=== PATIENT | female | born 1950 | race Caucasian/White ===

== ENCOUNTER → 2016-09-06 | Outpatient (CLI) | payer OTHER, BC ==
[~2016-09-06] MED LIST: ASPI81TA28 PO; CLR10 PO; HYDR-5688 PO; LEVO88TA PO; MAGN400T6 PO; META1TAB; MULT-506 PO; NAPR1TAB9 PO; OMEG10007 PO; SIMV5TAB2 PO
--- NOTE | 2016-09-06 11:32 | DIAGNOSTIC IMAGING REPORT ---
MRI OF THE THORACIC SPINE WITHOUT CONTRAST CLINICAL HISTORY: Left sided thoracic pain status post fall on July 10, 2016. COMPARISON: None. TECHNIQUE: Utilizing a 1.5 Raysa magnet and dedicated coil, multiplanar, multiecho imaging of the thoracic spine was performed without IV contrast. FINDINGS: Alignment of the thoracic spine is anatomic. Vertebral body heights are maintained. There is no marrow replacement or marrow edema. Thoracic cord signal and caliber are normal. There is no intracanalicular mass or fluid collection. Paravertebral soft tissues are unremarkable. Several perineural cysts or dilated nerve sheaths are noted within the lower thoracic spine which are of no clinical significance. Mild multilevel degenerative disc disease is noted with multiple small disc protrusions at several levels that result in mild narrowing of the central canal. These include a left paracentral disc protrusion at T6-T7 that results in mild narrowing of the central canal. The neural foramen are patent. IMPRESSION: 1. Mild multilevel degenerative disc disease of the thoracic spine with multiple small disc protrusions that result in mild narrowing of the central canal. 2. Normal thoracic cord signal and caliber. 3. No evidence of traumatic injury to the thoracic spine. Electronically signed by: Sergey Ahumada M.D. 09/06/2016 11:30 AM Dictated Date/Time: 09/06/2016 11:20 AM
== END | disposition home or self-care (01) ==
LOC: C.MRIBC 10:26
PROVIDERS: ATTEND Internal Medicine Geriatric Medicine
DX: M54.6 Pain in thoracic spine (principal)

== ENCOUNTER → 2016-09-20 | Outpatient (CLI) | payer OTHER, BC ==
--- NOTE | 2016-09-20 13:00 | DIAGNOSTIC IMAGING REPORT ---
C-SPINE ROUTINE 4 OR 5 VIEWS CLINICAL HISTORY: Neck pain with left arm radiculopathy COMPARISON STUDY: No previous studies for comparison. FINDINGS: The prevertebral soft tissues are normal. No fractures or subluxations are visualized. There are multilevel degenerative changes with disc space narrowing most pronounced the C4-5, C5-6, and C6-7 levels. There is right-sided foraminal narrowing at the C5-C6 and C6-7 levels. There is equivocal left-sided foraminal narrowing at the C3-4 level. IMPRESSION: 1. No acute fractures or subluxations identified 2. Moderate multilevel degenerative changes most pronounced at the C4-5 through C6-7 levels Electronically signed by: Mario Lackey M.D. 09/20/2016 12:58 PM Dictated Date/Time: 09/20/2016 12:57 PM
== END | disposition home or self-care (01) ==
LOC: C.RADBC 11:23
PROVIDERS: ATTEND Anesthesiology
DX: M54.12 Radiculopathy, cervical region (principal)

== ENCOUNTER → 2016-09-30 | Outpatient (CLI) | payer OTHER, BC ==
--- NOTE | 2016-09-30 11:54 | DIAGNOSTIC IMAGING REPORT ---
CERVICAL SPINE MRI HISTORY: Radiculopathy. Pain. CERVICALGIA, CERVICAL RADICULOPATHY TECHNIQUE: Multiplanar multisequence MRI of the cervical spine was performed without the use of contrast. COMPARISON STUDY: None. FINDINGS: Moderate to significant degenerative intervertebral this changes from C4 through T1. Signa characteristics the cervical cord are unremarkable. C2-C3: No significant central canal or neural foraminal narrowing. C3-C4: Moderate osteophytic narrowing left neural foramina C4-C5: Moderate osteophytic narrowing of the neuroforamina bilaterally. Slight broad-based disc bulge C5-C6: Considerable osteophytic narrowing of the right neuroforamina. Moderate changes on the left. No significant deformity of the cervical cord C6-C7: Significant osteophytic narrowing of the right and to lesser extent left neural foramina C7-T1: No significant central canal or neural foraminal narrowing. IMPRESSION: 1. Moderate to significant degenerative disc change from C4 through T1. 2. Moderate osteophytic narrowing left neural foramina C3-C4. 3. Moderate osteophytic narrowing of the neuroforamina bilaterally at C4-C5. 4. Significant osteophytic narrowing right neural foramina C5-C6. 5. Osteophytic narrowing of the right and to lesser extent left neural foramina at C6-C7 Electronically signed by: Miles Driver M.D. 09/30/2016 11:52 AM Dictated Date/Time: 09/30/2016 11:49 AM
== END | disposition home or self-care (01) ==
LOC: C.MRIBC 10:45
PROVIDERS: ATTEND Anesthesiology
DX: M54.12 Radiculopathy, cervical region (principal)

== ENCOUNTER → 2017-05-05 | Outpatient (CLI) | payer OTHER, BC ==
--- NOTE | 2017-05-05 08:48 | DIAGNOSTIC IMAGING REPORT ---
CHEST 2 VIEWS ROUTINE CLINICAL HISTORY: R05 [id number] dyspnea COMPARISON STUDY: 08/03/2016 FINDINGS: Minimal anterior right middle lobe infiltrate. Lungs otherwise appear clear. There is a component of mild emphysematous change. IMPRESSION: Minimal parenchymal infiltrate anterior aspect right middle lobe The above report was generated using voice recognition software. It may contain grammatical, syntax or spelling errors. Electronically signed by: Miles Driver M.D. 05/05/2017 8:46 AM Dictated Date/Time: 05/05/2017 8:45 AM
[2017-05-05 10:33] LABS: BASO % 0.9 %; BASO ABS # 0.05 K/uL (0-0.2); COMPLETE YES; EOS % 5.1 %; IG% 0.2 %; LYMPH % 39.1 %; LYMPH ABS # 2.14 K/uL (1.2-3.4); MEAN CELL VOLUME 92.2 fL (80-100); MEAN CORPUSCULAR HEMOGLOBIN 30.1 pg (25-34); MEAN CORPUSCULAR HGB CONC 32.6 g/dl (32-36); MEAN PLATELET VOLUME 9.7 fL (7.4-10.4); MONO % 9.7 %; PLATELET COUNT 368 K/uL (130-400); RED BLOOD COUNT 4.12 M/uL (4.2-5.4); WHITE BLOOD COUNT 5.48 K/uL (4.8-10.8)
[2017-05-05 10:59] LABS: ALT/SGPT 23 U/L (12-78); BLOOD UREA NITROGEN 10 mg/dl (7-18); BUN/CREATININE RATIO 13.3 (10-20); CALCIUM 8.7 mg/dl (8.5-10.1); CARBON DIOXIDE 28 mmol/L (21-32); CHLORIDE 107 mmol/L (98-107); CHOLESTEROL 157 mg/dl (0-200); CREATININE 0.74 mg/dl (0.60-1.20); GLUCOSE 93 mg/dl (70-99); POTASSIUM 3.7 mmol/L (3.5-5.1); SODIUM 142 mmol/L (136-145)
[2017-05-05 11:10] LABS: ALKALINE PHOSPHATASE 70 U/L (45-117); AST/SGOT 21 U/L (15-37); CHOLESTEROL/HDL RATIO 2.2; HDL CHOLESTEROL 71 mg/dl; LDL CHOLESTEROL CALCULATED 73 mg/dl; TRIGLYCERIDES 67 mg/dl (0-150); VERY LOW DENSITY LIPOPROT CALC 13 mg/dl
== END | disposition home or self-care (01) ==
LOC: C.RADBC 08:28
PROVIDERS: ATTEND Internal Medicine
DX: M81.0 Age-related osteoporosis without current pathological fracture (principal); Z11.59 Encounter for screening for other viral diseases; R05 Cough; R91.8 Other nonspecific abnormal finding of lung field

== ENCOUNTER → 2017-05-07 | Outpatient (CLI) | payer OTHER, BC ==
--- NOTE | 2017-05-07 08:36 | DIAGNOSTIC IMAGING REPORT ---
(CHEST) THORAX WITHOUT CT DOSE: 245.60 mGy.cm HISTORY: Chest pain cough TECHNIQUE: Multiaxial CT images of the chest were performed without contrast. A dose lowering technique was utilized adhering to the principles of ALARA. COMPARISON: None. FINDINGS: Scattered atelectatic/bronchiectatic changes throughout both hemithoraces. Small foci are identified in the superior segments of the upper lung regions. Moderate regional bronchiectatic foci are identified in the right middle lobe at its mid aspect, mid aspect right lower lobe, and more prominently anterior aspect right middle lobe whether is peripheral consolidative changes of the anterior costophrenic angle. Lung bases otherwise are clear. Mediastinal and hilar regions show no significant adenopathy within limitations of an unenhanced scan. There are several small small shotty axillary nodes considered benign. IMPRESSION: 1. Scattered atelectatic/bronchiectatic change throughout both hemithoraces. 2. Focal consolidative infiltrate anterior aspect right middle lobe at the anterior costophrenic angle. 3. Repeat study in 3-4 months is suggested to confirm resolution and exclude any underlying pathologic process. The above report was generated using voice recognition software. It may contain grammatical, syntax or spelling errors. Electronically signed by: Miles Driver M.D. 05/07/2017 8:35 AM Dictated Date/Time: 05/07/2017 8:29 AM
== END | disposition home or self-care (01) ==
LOC: C.CTS 08:16
PROVIDERS: ATTEND Internal Medicine
DX: R05 Cough (principal); R91.8 Other nonspecific abnormal finding of lung field

== ENCOUNTER → 2017-07-04 | Outpatient (CLI) | payer OTHER, BC ==
--- NOTE | 2017-07-04 15:36 | MAMMOGRAPHY REPORT ---
BILATERAL DIGITAL SCREENING MAMMOGRAM WITH CAD: 07/04/2017 CLINICAL HISTORY: Routine screening. Patient has no complaints. TECHNIQUE: Current study was also evaluated with a Computer Aided Detection (CAD) system. Bilateral CC and MLO views were obtained. COMPARISON: Comparison is made to exams dated: 05/17/2016 mammogram - [facility], mammogram, 03/29/2014 mammogram, 03/12/2013 mammogram, 12/18/2009 mammogram, and 11/02/2007 mammo gram. BREAST COMPOSITION: The tissue of both breasts is heterogeneously dense, which may obscure small mas ses. FINDINGS: There is an irregular focal asymmetry measuring approximately 13 mm within the right upper outer quadrant posteriorly, with possible associated faint calcifications noted. Recommend spot comp ression tomosynthesis views, spot magnification views, and possible breast ultrasound for further antonina luation. The remainder of both breasts are stable compared to prior exams, without suspicious masses, calcific ations, or areas of architectural distortion noted. Circumscribed benign-appearing 5 mm mass within the right 9:00 breast is stable. A biopsy marker clip and associated calcifications in the left medi al anterior breast are stable. IMPRESSION: ACR BI-RADS CATEGORY 0: INCOMPLETE EVALUATION: NEED ADDITIONAL IMAGING EVALUATION Right breast asymmetry and possible associated calcifications, for which additional imaging evaluatio n is recommended. The patient will be called to schedule an appointment. Approximately 10% of breast cancers are not detected with mammography. A negative mammographic report should not delay biopsy if a clinically suggestive mass is present. Elsi Fletcher M.D. ah/:07/04/2017 14:35:11 Steamer Gum Candy: Ruth ANDERSEN(Nicholas)(Josi)(BD), [facility] letter sent: Addl Imaging 0 BI-RADS Code: ACR BI-RADS Category 0: Incomplete Evaluation: Need Additional Imaging Evaluation
== END | disposition home or self-care (01) ==
LOC: C.MAMM 13:35
PROVIDERS: ATTEND Internal Medicine
DX: Z12.31 Encounter for screening mammogram for malignant neoplasm of breast (principal); N64.89 Other specified disorders of breast

== ENCOUNTER → 2017-07-16 | Outpatient (CLI) | payer OTHER, BC ==
--- NOTE | 2017-07-16 13:58 | MAMMOGRAPHY REPORT ---
BILATERAL DIGITAL DIAGNOSTIC MAMMOGRAM TOMOSYNTHESIS AND TARGETED RIGHT ULTRASOUND: 07/16/2017 CLINICAL HISTORY: 67 year old woman called back from screening mammography for an irregular focal asy mmetry in the right upper outer quadrant, possibly with associated calcification. Patient has a hist ory of prior remote breast biopsies and surgeries. TECHNIQUE: Bilateral tomosynthesis CC and MLO views and spot magnification right CC and ML views wer e obtained. COMPARISON: Comparison is made to exams dated: 07/04/2017 mammogram, 05/17/2016 mammogram - [facility], 03/31/2015 mammogram, 03/29/2014 mammogram, 03/12/2013 mammogram, and 12/18/2009 mamm ogram. BREAST COMPOSITION: The tissue of both breasts is heterogeneously dense, which may obscure small mas ses. FINDINGS: There is a spiculated 10 mm mass/focal asymmetry in the upper outer posterior right breast near the fatglandular interface. Spot magnification views demonstrate microcalcifications that appe ar to be tram tracking, suggesting vascular origin. No microcalcifications are definitely associated with this spiculated mass. A circumscribed 5 mm mass also seen in the upper outer middle one third of the right breast has been stable on all available prior mammograms dating back to at least 2008, t herefore likely benign. No other obvious new suspicious mass, suspicious microcavitation indications or areas of architectural distortion are seen bilaterally. There is a stable biopsy marker clip in the anterior left breast and a few benign coarse calcifications. Targeted ultrasound was performed in the right upper outer quadrant. In the 9:00 axis approximately 8 cm from the nipple, there is a mixed echogenicity hypoechoic and echogenic anti-parallel mass with indistinct margins. This correlates with the spiculated mammographic mass. It measures approximatel y 8.5 x 8.6 x 8.6 mm and is suspicious for malignancy. Definitive characterization with ultrasound g uided core biopsy is recommended. Additional scanning throughout the right upper outer quadrant demo nstrates a lymph node in the 9:30 right breast, 9 cm from the nipple, with mildly prominent cortex, a lthough cortical thickness is within the range of normal at 2 mm, given the prominent appearance of t he cortex, definitive characterization with core needle biopsy is also recommended. IMPRESSION: ACR BI-RADS CATEGORY 4: SUSPICIOUS, TARGETED ULTRASOUND ACR BI-RADS CATEGORY 4: SUSPICIO US 1. Ultrasound-guided core biopsy is recommended for a suspicious 9 mm spiculated mass in the right 9 :00 breast posteriorly. 2. Ultrasound-guided core biopsy is also recommended for a prominent 4 mm lymph node in the 9:30 rig ht breast, 9 cm from the nipple. 3. No other focal area of distortion or spiculation is seen in both breasts on tomosynthesis images. These results and recommendations were discussed with the patient and her at the time of the exam. She tentatively scheduled the right breast biopsies prior to leaving our department. Approximately 10% of breast cancers are not detected with mammography. A negative mammographic report should not delay biopsy if a clinically suggestive mass is present. Monica Dean M.D. ay/:07/16/2017 12:28:00 Computer Training Specialist: Kiya Rivas, [facility] letter sent: Abnormal 4/5 BI-RADS Code: ACR BI-RADS Category 4: Suspicious Ultrasound BI-RADS: ACR BI-RADS Category 4: Suspici ous
== END | disposition home or self-care (01) ==
LOC: C.MAMM 09:09
PROVIDERS: ATTEND Internal Medicine
DX: R92.8 Other abnormal and inconclusive findings on diagnostic imaging of breast (principal); N64.89 Other specified disorders of breast

== ENCOUNTER → 2017-07-23 | Outpatient (CLI) | payer OTHER, BC ==
--- NOTE | 2017-07-23 12:30 | Discharge Instructions ---
Discharge Instructions Procedure Procedure Date: Jul 23, 2017. Reason for visit: R Breast Masses X2. Discharge Discharge Date: Jul 23, 2017. Discharge Diagnosis: post right breast mass and lymph node biopsy Instructions Activity Recommendations: Additional Limitations (see below) Return to School/Work: no limitations Recommended Home Diet: No Limitations Provider Instructions: ACTIVITY RECOMMENDATIONS: * No lifting, pushing, pulling or exercising the affected side for three days. RETURN TO SCHOOL/WORK: * You may return to work/school after the procedure, but do not perform any strenuous activities for 24 to 48 hours. MEDICATIONS: * Tylenol (two 325 mg) every four to six hours if needed for mild pain (if not allergic to Tylenol). DIET: * Resume previous diet. SPECIAL CARE INSTRUCTIONS: * Keep biopsy site dry for 24 hours. May shower after 24 hours, but do not soak (bathe) incision. * May remove Tegaderm (plastic patch) tomorrow AFTER showering. * Leave the steri-strips on for one week. Allow the steri-strips to fall off by themselves. If not off after one week, you may remove them. You may place a Bandaid crosswise over the strips, if desired. * Apply ice 10 minutes on and 10 minutes off as needed. * Wear a bra at bedtime to sleep more comfortably for 2-3 days. * Your referring physician should have the results after approximately 5 to 7 business days. * Call for unusual bleeding, fever, drainage, etc or if you have any questions call [phone] during normal business hours or after hours call Dr Dean, . FOLLOW UP VISIT: Follow-up with Referring Physician as scheduled. Allergies Coded Allergies: No Known Allergies (Unverified , 08/03/16) Zaire Parker Recommendations: Call your doctor if: * Temperature above 101 degrees * Pain not relieved by pain medicine ordered * There is increased drainage or redness from any incision * You have any unanswered questions or concerns. Your Doctors Instructions noted above were prepared by provider Monica Dean. Patient Signature Section: Patient Instructions Signature Page Brynn López Patient (or Guardian) Signature/Date: I have read and understand the instructions given to me by my caregivers. Caregiver/RN/Doctor Signature/Date: The above-named patient and/or guardian has received patient instructions on this date. + Original Patient Signature Page (only) stays with chart. Please make copy for patient.
--- NOTE | 2017-07-23 15:15 | MAMMOGRAPHY REPORT ---
MULTIPLE ULTRASOUND GUIDED BIOPSIES RIGHT BREAST: 07/23/2017 CLINICAL HISTORY: Indeterminate spiculated hypoechoic 9 mm mass in the 9:00 right breast, and a promi nent lymph node in the 9:30 right breast, 14 cm from the nipple. Patient presents for ultrasound-sylvie ded core biopsy 2. COMPARISON: Comparison is made to exams dated: 07/16/2017 ultrasound, 07/16/2017 mammogram, 07/04/20 17 mammogram, 05/17/2016 mammogram - [facility], and 03/31/2015 mammogram. PATIENT CONSENT: The procedure, risks and benefits were discussed with the patient and informed conse nt was obtained both verbally and in writing. Specific risks to this procedure include: bleeding, in fection, puncture of adjacent structure, nontarget biopsy, sampling error, pain, metal allergy and me dication reaction. PROCEDURE DESCRIPTION: First the suspicious spiculated shadowing mixed echogenicity mass in the 9:00 right breast was identified and targeted for biopsy. A time out was performed and the right breast w as agreed as the site of biopsy. The skin was prepped and draped in the usual sterile fashion. Subcut aneous and intraparenchymal 1% buffered lidocaine, with and without epinephrine, was administered as local anesthesia. A skin incision was made. Through the incision, 4 samples were taken with a 14 gau [employer] biopsy device. A ribbon shaped metallic marker was placed at the biopsy site. Hemostasis w as achieved after manual compression. The patient tolerated the procedure well and there was no immed iate complication. Then a plump lymph node was identified in the 9:30 right breast, which currently measures 14 cm from the nipple with the patient in the left lateral decubitus positioning. Additional buffered lidocaine with and without epinephrine was administered as local anesthesia. Using an 18-gauge Quick-Core bio psy device, 3 samples were obtained and a wing-shaped biopsy marker clip was placed within the lymph node. Hemostasis was achieved after several minutes of manual compression. Steri-Strips were placed over both incisions and an OpSite patch placed on top both. The patient tolerated the procedures we ll and there was no immediate complication. She left the department in satisfactory position. The sa mples were sent to the pathology department in appropriately labeled containers. Postprocedure right CC and ML views were obtained. The biopsy marker clips are both identified in th e CC projection but only a ribbon-shaped biopsy marker clip is seen in the MLO projection. The wing- shaped clip aligns with the speech related mammographic mass in question, and a wing-shaped clip is s een within a small lymph node. Again it should be noted that the lymph node was in the 9:30 right br east, 14 cm from the nipple when measured in the left lateral decubitus position. No significant pos tbiopsy hematoma is seen at either site. IMPRESSION: ULTRASOUND GUIDED BIOPSY Status post ultrasound-guided core biopsy of a suspicious right 9:00 breast mass and biopsy of a lymp h node in the adjacent 9:30 right breast. Biopsy clips were placed at each site. The patient will receive notification of the biopsy results from her referring physician. Monica Dean M.D. ay/:07/23/2017 12:48:35 Attending Technologist: Kiya ANDERSEN(Nicholas)(M), [facility] Medical Research Scientist: Dr. Monica Dean, [facility]
--- NOTE | 2017-07-23 15:15 | MAMMOGRAPHY REPORT ---
MULTIPLE ULTRASOUND GUIDED BIOPSIES RIGHT BREAST: 07/23/2017 CLINICAL HISTORY: Indeterminate lymph node in the 9:30 right breast. Suspicious right 9:00 breast ma ss. Patient present for ultrasound-guided core biopsy of the breast mass and lymph node. Please refer to the report from right breast ultrasound guided core biopsy performed at the same time for full detail. IMPRESSION: ULTRASOUND GUIDED BIOPSY Please refer to the report from right breast ultrasound guided core biopsy performed at the same time for full detail. Monica Dean M.D. ay/:07/23/2017 12:32:05 Attending Technologist: Christos ANDERSEN(R)(M), [facility] Home Health Care Coordinator: Dr. Monica Dean, [facility]
--- NOTE | 2017-07-23 15:18 | MAMMOGRAPHY REPORT ---
UNILATERAL RIGHT DIGITAL DIAGNOSTIC MAMMOGRAM TOMOSYNTHESIS: 07/23/2017 CLINICAL HISTORY: Status post ultrasound-guided core biopsy of a suspicious spiculated hypoechoic sha dowing mass in the 9:00 right breast, and a lymph node in the 9:30 right breast. Please refer to the report from right breast ultrasound guided core biopsy performed at the same time for full detail. IMPRESSION: POST PROCEDURE IMAGING FOR MARKER PLACEMENT Please refer to the report from right breast ultrasound guided core biopsy performed at the same time for full detail. Approximately 10% of breast cancers are not detected with mammography. A negative mammographic report should not delay biopsy if a clinically suggestive mass is present. Monica Dean M.D. ay/:07/23/2017 12:31:15 [employer] Sports Book Writer: Christos MURO)(M), [facility] BI-RADS Code: Post Procedure Imaging For Marker Placement
== END | disposition home or self-care (01) ==
LOC: C.MAMM 10:46
PROVIDERS: ATTEND Internal Medicine
DX: C50.911 Malignant neoplasm of unspecified site of right female breast (principal)

== ENCOUNTER → 2017-08-13 | Day surgery (SDC) | payer OTHER, BC ==
[2017-07-31 09:15] VITALS: BMI 27.0
--- NOTE | 2017-07-31 09:56 | PAT Medication Instructions ---
Service Date Jul 31, 2017. Current Home Medication List Aspirin (Aspirin Ec), 81 MG PO QPM Fish Oil ([place]-3), 1 CAP PO BID Levothyroxine Sodium (Synthroid), 88 MCG PO QAM Loratadine (Claritin), 10 MG PO QAM Magnesium Oxide (mg Supplement (Magnesium Oxide), 1 TAB PO QAM Multivitamin (Multivitamin), 1 TAB PO QAM Naproxen (Aleve), 220 MG PO UD PRN for Pain Saccharomyces Boulardii (Probiotic), Unknown Dose PO QAM Scopolamine (Transderm-Scop), Unknown Dose UD Simvastatin (Zocor), 10 MG PO QPM Medication Instructions For Your Scheduled Surgery -Contact your surgeon for instructions for: Naproxen (Aleve), 220 MG PO UD PRN for Pain - Hold the following medications 2 weeks prior to surgery: Fish Oil ([place]-3), 1 CAP PO BID - Hold the following medications 24 hours prior to surgery: Scopolamine (Transderm-Scop), Unknown Dose UD - Hold the following medications the morning of surgery: Saccharomyces Boulardii (Probiotic), Unknown Dose PO QAM Loratadine (Claritin), 10 MG PO QAM Magnesium Oxide (mg Supplement (Magnesium Oxide), 1 TAB PO QAM Multivitamin (Multivitamin), 1 TAB PO QAM - Take the following medications the morning of surgery with a sip of water: Levothyroxine Sodium (Synthroid), 88 MCG PO QAM - Take the following medications as scheduled the night before surgery: Aspirin (Aspirin Ec), 81 MG PO QPM Simvastatin (Zocor), 10 MG PO QPM If you have any questions please call us at [phone] or [phone] or [phone]
--- NOTE | 2017-07-31 10:42 | DIAGNOSTIC IMAGING REPORT ---
CHEST 2 VIEWS ROUTINE CLINICAL HISTORY: PAT preoperative evaluation COMPARISON STUDY: 05/05/2017 FINDINGS: The bones soft tissues and hemidiaphragms are normal. The cardiomediastinal silhouette is normal. The lungs are clear. The pulmonary vasculature is normal. IMPRESSION: Negative chest. The above report was generated using voice recognition software. It may contain grammatical, syntax or spelling errors. Electronically signed by: Miles Driver M.D. 07/31/2017 10:41 AM Dictated Date/Time: 07/31/2017 10:40 AM
[2017-07-31 10:51] LABS: BASO % 1.1 %; BASO ABS # 0.08 K/uL (0-0.2); EOS % 2.6 %; EOS ABS # 0.19 K/uL (0-0.5); HEMATOCRIT 40.5 % (37-47); IG# 0.01 K/uL (0.00-0.02); LYMPH % 32.9 %; LYMPH ABS # 2.44 K/uL (1.2-3.4); MEAN CELL VOLUME 95.3 fL (80-100); MEAN CORPUSCULAR HEMOGLOBIN 30.6 pg (25-34); MEAN CORPUSCULAR HGB CONC 32.1 g/dl (32-36); MEAN PLATELET VOLUME 9.7 fL (7.4-10.4); MONO ABS # 0.96 K/uL (0.11-0.59); NEUT % 50.3 %; NEUT ABS # 3.73 K/uL (1.4-6.5); PLATELET COUNT 378 K/uL (130-400); RED CELL DISTRIBUTION WIDTH CV 13.9 % (11.5-14.5); RED CELL DISTRIBUTION WIDTH SD 47.7 fL (36.4-46.3); WHITE BLOOD COUNT 7.41 K/uL (4.8-10.8)
[2017-07-31 11:01] LABS: ALBUMIN 3.9 gm/dl (3.4-5.0); CALCIUM 9.3 mg/dl (8.5-10.1); CREATININE 0.73 mg/dl (0.60-1.20); POTASSIUM 3.8 mmol/L (3.5-5.1)
[2017-07-31 11:04] LABS: TOTAL PROTEIN 7.8 gm/dl (6.4-8.2)
[~2017-08-13] VITALS: Ht 154.9 cm; Wt 64.5 kg
[~2017-08-13] MED LIST changes: +ANAS1TAB59 PO; +ATROPINE SULFATE 0.1 MG/ML 5ML SYR IV PRN; +BUPIVACAINE 0.5 % 5 MG/1 ML MPF 30ML VIAL ONE; +CEFAZOLIN 2000MG IV PUSH 10 ML IV SCH; +DOCU-94 PO; +EpHEDrine SULFATE 50MG/5ML SYR ONE; +EpHEDrine SULFATE INJ 50 MG/ML AMP IV PRN; +FENTANYL CITRATE INJ 50 MCG/1 ML 2 ML VIAL IV PRN; +FENTANYL CITRATE INJ 50 MCG/1 ML 2 ML VIAL ONE; +GLUCTAB7 PO; -HYDR-5688 PO; +HYDROmorphone INJ 1 MG/ML SYR IV PRN; +LACTATED RINGER'S 1000ML 1,000 ML IV SCH; +LIDOCAINE HCL 2% 2 ML VIAL (20MG/ML) ONE; -MAGN400T6 PO; +MAGN500T22 PO; -META1TAB; +METR0.7536 TOP; +MIDAZOLAM HCL 1 MG/ML 2ML VIAL ONE; +MoRPHine SULFATE 2 MG/ML CARP IV PRN; +ONDANSETRON INJ 2 MG/ML 2 ML VIAL IV PRN; +OXYC-57 PO; +OXYCODONE/ACETAMINOPHEN 5-325 TAB PO PRN; +PROMETHAZINE HCL INJ 12.5 MG in SODIUM CHLORIDE 0.9% 50ML 50 ML IV PRN; +PROPOFOL IV EMULSION 10 MG/ML 20 ML VIAL IV ONE; +SACC250C11 PO; +SCOP1.5D2; +SCOP1DIS17 TD
[2017-08-13 10:12] VITALS: BP 142/85; PULSE 77; TEMP 36.8; O2SAT 98; Ht 154.9 cm; Wt 64.5 kg
--- NOTE | 2017-08-13 10:15 | DIAGNOSTIC IMAGING REPORT ---
LYMPHOSCINTIGRAPHY BREAST CLINICAL HISTORY: RIGHT BREAST CA breast carcinoma TECHNIQUE: Sequential right periareolar injection of a total of 0.5 mCi technetium 99m lymphocele. COMPARISON STUDY: None FINDINGS: Successful right periareolar injection of lymphocytic. A lymph node is localized in the right axilla at 30 minutes. It was marked for later operative evaluation. IMPRESSION: Successful lymphoscintigraphy and lymph node marking. The above report was generated using voice recognition software. It may contain grammatical, syntax or spelling errors. Electronically signed by: Miles Driver M.D. 08/13/2017 10:13 AM Dictated Date/Time: 08/13/2017 10:12 AM
--- NOTE | 2017-08-13 12:32 | History & Physical Bridge Note ---
H&P Re-Evaluation Bridge Note: I have examined the patient, reviewed the History & Physical and in the interval since the performance of the History & Physical I have noted the following changes of clinical significance: Injection performed for axillary sentinel node biopsy, wire localization performed and films reviewed. No changes noted
--- NOTE | 2017-08-13 13:41 | MAMMOGRAPHY REPORT ---
UNILATERAL RIGHT DIGITAL DIAGNOSTIC MAMMOGRAM TOMOSYNTHESIS: 08/13/2017 CLINICAL HISTORY: 67-year-old woman with biopsy-proven right breast carcinoma. She presents for preo perative needle and wire localization prior to lumpectomy. Please refer to the report from right breast ultrasound guided needle localization performed at the s joy time for full detail. IMPRESSION: Please refer to the report from right breast ultrasound guided needle localization performed at the s joy time for full detail. Approximately 10% of breast cancers are not detected with mammography. A negative mammographic report should not delay biopsy if a clinically suggestive mass is present. Monica Dean M.D. ay/:08/13/2017 08:48:53 Beaver Trapper: Christos ANDERSEN(R)(M), [facility] BI-RADS Code: n/a
--- NOTE | 2017-08-13 14:32 | [facility] Post Operative Brief Note ---
Immediate Operative Summary Operative Date Aug 13, 2017. Pre-Operative Diagnosis Infiltrating Lobular Cancer of Right Breast Post-Operative Diagnosis Infiltrating Lobular Cancer of Right Breast Procedure(s) Performed Right Breast Lumpectomy with Needle Localization and Right [place] Lymph Node Biopsy Surgeon Dr Benito Exhibits Coordinator Surgeon(s) Grant oMlina PA-C Estimated Blood Loss 9CC Findings Right axillary sentinel lymph node identified with gamma probe. Max count 360 ex vivo, axilla silent area and 4-5 small sentinel lymph nodes excised. Right breast wire localized lumpectomy performed, tissue taken down to chest wall. Radiology confirmed excision of wire, clips, and suspicious calcifications. Specimens A: Sentinal Node B: Additional Sentinal Node C: right breast mass-short stitch: Long Lateral Double Deep Drains none Anesthesia GETA Complication(s) None Disposition Recovery Room / PACU
--- NOTE | 2017-08-13 14:38 | [facility] Operative Report ---
Operative Report Operative Date Aug 13, 2017. Pre-Operative Diagnosis Infiltrating Lobular Cancer of Right Breast Post-Operative Diagnosis same Procedure(s) Performed Right breast wire localized lumpectomy and right axillary sentinel lymph node biopsy Surgeon Dr Benito Physics Teacher Surgeon(s) Grant Molina PA-C Estimated Blood Loss 9CC Findings Right axillary sentinel lymph nodes identified with gamma probe. Max count 360 ex vivo, axilla silent area and 4-5 small sentinel lymph nodes excised. Right breast wire localized lumpectomy performed, tissue taken down to chest wall. Radiology confirmed excision of wire, clips, and suspicious calcifications. Specimens A: Sentinal Node B: Additional Sentinal Node C: right breast mass-short stitch: Long Lateral Double Deep Drains none Anesthesia GETA Complication(s) None Disposition Recovery Room / PACU Indications 67-year-old female diagnosed with lobular carcinoma of right breast following core needle biopsy after suspicious findings on routine mammogram. The mass is nonpalpable. Plan for wire localized right breast lumpectomy and right axillary sentinel lymph node biopsy. The risks of the procedure were discussed , all questions were answered, and the patient agreed to proceed with surgery as planned. Description of Procedure The patient had a localization wire placed in radiology prior to surgery. The films were reviewed with the radiologist for incisional planning. Patient had lymphoscintigraphy performed prior to the procedure and the axilla was examined with a gamma probe and confirmed uptake into the axilla. The patient was properly identified, consented, and taken to the operating room where she was placed in the supine position. General endotracheal anesthesia was induced. SCDs and a safety belt were placed. Preoperative antibiotics were administered. The patient's right breast and axilla were prepped and draped in the standard sterile fashion. Surgical timeout was performed and all parties were in agreement that this was the correct patient and procedure to be performed and we continued as planned. An incision was made in the right axilla in a natural skin crease and deepened down to subcutaneous tissue with electrocautery. The gamma probe was used to localize the sentinel lymph node which read 320 in vivo, and 370 ex vivo. The axilla was explored and additional lymph nodes were taken that registered greater than 10% of the ex vivo count of the sentinel lymph node. A total of 4- 5 lymph nodes were excised and sent for permanent specimen. The axilla was reexamined with the gamma probe and was silent. The wound was packed and attention turned to the breast lesion. A transverse incision was made on the upper outer quadrant of the right breast near the areola and deepened down through the subcutaneous tissue with electrocautery. Flaps were raised in all directions. The wire was delivered into the incision. The breast mass was circumferentially dissected, excised, and passed off the table as specimen. The specimen was oriented. A mammogram was performed of the specimen in radiology and confirmed excision of the wire, clip, and previously imaged abnormality. The wounds were irrigated and hemostasis was confirmed. The skin incisions were closed with interrupted 3-0 Vicryl deep dermal sutures, followed by 4-0 Monocryl running subcuticular suture. Dermabond was placed over the wounds. The physician's assistant store director, Priyank Molina, was crucial for positioning the patient, prepping and draping, retraction, exposure, and closing the incisions. The patient was extubated in the operating room and taken to the PACU where she recovered without apparent incident. All sponge, instrument and needle counts were correct at the conclusion of the procedure. The patient tolerated the procedure well. I attest to the content of the Intraoperative Record and any orders documented therein. Any exceptions are noted below.
--- NOTE | 2017-08-13 14:51 | Discharge Instructions ---
Discharge Instructions Date of Service Aug 13, 2017. Visit Reason for Visit: Right Breast Cancer W/Hosp Loc & Nm Lymph Scan Discharge Discharge Diagnosis / Problem: lumpectomy and lymph node biopsy Discharge Goals Goal(s): Decrease discomfort Activity Recommendations Activity Limitations: as noted below Shower/Bathe: no limitations (ok to shower) Driving or Machine Use: resume 3 days after discharge Anesthesia . Post Anesthesia Instructions: If you have had General Anesthesia or IV Sedation: * Do not drive today. * Resume driving when surgeon permits. * Do not make important decisions or sign legal documents today. * Call surgeon for: 1. Temperature elevations greater than 101 degrees F. 2. Uncontrollable pain. 3. Excessive bleeding. 4. Persistent nausea and vomiting. 5. Medication intolerance (nausea, vomiting or rash). * For nausea and vomiting use only clear liquids such as: tea, soda, bouillon until nausea subsides, then gradually increase diet as tolerated. * If you have any concerns or questions, call your surgeon's office. If physician is unavailable and it is an emergency, call 911 or go to the nearest emergency room. . Instructions / Follow-Up Instructions / Follow-Up Dr. Benito as planned in 1-2 weeks, call [phone] for any questions Diet Recommendations Recommended Home Diet: no limitations Procedures Procedures Performed: Right Breast Lumpectomy with Needle Localization and Right [place] Lymph Node Biopsy Pending Studies Studies pending at discharge: yes List of pending studies: pathology Medical Emergencies . Who to Call and When: Medical Emergencies: If at any time you feel your situation is an emergency, please call 911 immediately. . Non-Emergent Contact Non-Emergency issues call your: Surgeon Call Non-Emergent contact if: you have a fever, temperature is above 101.5, your pain is not controlled, wound has increased pain, you have any medication questions . . "Provider Documentation" section prepared by Priyank Molina. .
[2017-08-13 15:37] VITALS: BP 132/76; PULSE 85; TEMP 36.6; O2SAT 97
--- NOTE | 2017-08-13 15:49 | Anesthesiology Progress Note ---
Anesthesia Post Op Note Date & Time Aug 13, 2017 at 15:49 Vital Signs Pain Intensity: 3 Vital Signs Past 12 Hours Date Time Temp Pulse Resp B/P (MAP) Pulse Ox O2 Delivery O2 Flow Rate FiO2 08/13/17 15:29 37.1 08/13/17 15:25 131/75 08/13/17 15:23 92 16 08/13/17 15:23 92 16 95 08/13/17 15:22 86 15 08/13/17 15:22 87 15 94 08/13/17 15:20 132/77 08/13/17 15:17 88 15 94 08/13/17 15:17 88 15 08/13/17 15:15 126/78 08/13/17 15:12 81 14 08/13/17 15:12 82 14 93 08/13/17 15:11 87 16 94 08/13/17 15:11 87 16 08/13/17 15:10 125/79 08/13/17 15:06 92 18 08/13/17 15:06 93 18 95 08/13/17 15:05 130/83 08/13/17 15:03 95 18 08/13/17 15:03 94 18 99 08/13/17 15:00 136/81 08/13/17 14:58 94 17 100 08/13/17 14:58 93 17 08/13/17 14:55 130/83 08/13/17 14:53 92 17 100 08/13/17 14:53 91 17 08/13/17 14:50 128/79 08/13/17 14:48 86 12 128/79 100 08/13/17 14:48 88 12 08/13/17 14:48 36.7 86 12 128/79 100 Oxymask 10 08/13/17 10:12 36.8 77 18 142/85 (104) 98 Room Air Notes Mental Status: alert / awake / arousable, participated in evaluation Pt Amnestic to Procedure: Yes Nausea / Vomiting: adequately controlled Pain: adequately controlled Airway Patency, RR, SpO2: stable & adequate BP & HR: stable & adequate Hydration State: stable & adequate Anesthetic Complications: no major complications apparent
[2017-08-13 16:10] VITALS: BP 136/77; PULSE 79; O2SAT 98
[2017-08-13 16:40] VITALS: BP 144/71; PULSE 78; TEMP 37; O2SAT 98
--- NOTE | 2017-08-14 14:52 | MAMMOGRAPHY REPORT ---
NEEDLE LOCALIZATION RIGHT BREAST: 08/13/2017 CLINICAL HISTORY: 67-year-old woman with recent biopsy proven lobular carcinoma of the right breast. She presents for preoperative needle and wire localization prior to lumpectomy. COMPARISON: Comparison is made to exams dated: 08/13/2017 specimen, 07/23/2017 mammogram, 07/23/2017 u ltrasound biopsy, 07/23/2017 ultrasound biopsy, 07/16/2017 ultrasound, and 07/16/2017 mammogram - [facility]. PATIENT CONSENT: The risks of the procedure were explained to the patient and informed consent was ob tained. The patient denied allergy to lidocaine. She reported she did not eat or drink anything thi s morning that would preclude anesthesia. PROCEDURE DESCRIPTION: Prior mammograms and ultrasounds were reviewed including ultrasound-guided cor e biopsy dated 07/23/2017 and the post procedure mammograms performed on the same day. The spiculate d mass and associated ribbon-shaped biopsy marker clip in the right upper outer posterior breast aren 't the intended target for preoperative localization. A timeout was performed in the right breast was agreed as the site for preoperative localization. Wi th the patient in the supine/left lateral decubitus position, the skin of the right breast was cleans ed with Betadine. 1% buffered lidocaine without epinephrine was administered as local anesthesia. A 5cm Amato II needle and wire combination was inserted into the breast. Optimal positioning was con firmed and the needle was removed, leaving the wire in place, as per surgeon's preference. The entir e procedure including approach and needle length were discussed with the operating surgeon prior to s urgery. The patient tolerated the procedure well and there was no immediate complication. She was t ransferred to the hospital operating room in satisfactory condition. The specimen radiograph demonstrates the localizing wire, ribbon-shaped biopsy marker clip and vague area of architectural distortion. Vascular calcifications and a few other punctate calcifications ar e identified in the specimen. IMPRESSION: NEEDLE LOCALIZATION Status post successful preoperative needle and wire localization for biopsy proven lobular carcinoma in the right upper outer quadrant. The imaged specimen includes the intended abnormalities. The patient will receive notification of the pathology results from her referring physician. Monica Dean M.D. ay/:08/13/2017 14:51:25 Attending Technologist: Christos ANDERSEN(Nicholas)(M), [facility] Enrollment Management Director: Dr. Monica Dean, [facility]
== END | disposition home or self-care (01) ==
LOC: EDSTATUS 07-31 08:30 → C.ACU 07:50
PROVIDERS: ATTEND Surgery
DX: C50.911 Malignant neoplasm of unspecified site of right female breast (principal); E78.5 Hyperlipidemia, unspecified; Z98.51 Tubal ligation status; E03.9 Hypothyroidism, unspecified; M19.90 Unspecified osteoarthritis, unspecified site; Z79.899 Other long term (current) drug therapy; Z98.890 Other specified postprocedural states; Z79.82 Long term (current) use of aspirin; Z80.0 Family history of malignant neoplasm of digestive organs; Z80.1 Family history of malignant neoplasm of trachea, bronchus and lung; Z82.49 Family history of ischemic heart disease and other diseases of the circulatory system; Z83.3 Family history of diabetes mellitus

== ENCOUNTER → 2017-08-25 | Outpatient (CLI) | payer OTHER, BC ==
[~2017-08-25] MED LIST changes: -ANAS1TAB59 PO; -ATROPINE SULFATE 0.1 MG/ML 5ML SYR IV PRN; -BUPIVACAINE 0.5 % 5 MG/1 ML MPF 30ML VIAL ONE; -CEFAZOLIN 2000MG IV PUSH 10 ML IV SCH; -DOCU-94 PO; -EpHEDrine SULFATE 50MG/5ML SYR ONE; -EpHEDrine SULFATE INJ 50 MG/ML AMP IV PRN; -FENTANYL CITRATE INJ 50 MCG/1 ML 2 ML VIAL IV PRN; -FENTANYL CITRATE INJ 50 MCG/1 ML 2 ML VIAL ONE; -HYDROmorphone INJ 1 MG/ML SYR IV PRN; -LACTATED RINGER'S 1000ML 1,000 ML IV SCH; -LIDOCAINE HCL 2% 2 ML VIAL (20MG/ML) ONE; -METR0.7536 TOP; -MIDAZOLAM HCL 1 MG/ML 2ML VIAL ONE; -MoRPHine SULFATE 2 MG/ML CARP IV PRN; -ONDANSETRON INJ 2 MG/ML 2 ML VIAL IV PRN; -OXYCODONE/ACETAMINOPHEN 5-325 TAB PO PRN; -PROMETHAZINE HCL INJ 12.5 MG in SODIUM CHLORIDE 0.9% 50ML 50 ML IV PRN; -PROPOFOL IV EMULSION 10 MG/ML 20 ML VIAL IV ONE; -SCOP1DIS17 TD
--- NOTE | 2017-08-25 12:05 | DIAGNOSTIC IMAGING REPORT ---
PET/CT SKULL-THIGH HISTORY: Breast carcinoma BREAST CANCER TECHNIQUE: PET/CT was performed from the base of the skull through the pelvis following the intravenous administration of mCi of F18-FDG. Non-contrast CT imaging was performed over the same range without breath-hold for attenuation correction of PET images and anatomic correlation, but not for primary interpretation as it is not of standard diagnostic quality. CT DOSE: 298.28 mGycm COMPARISON: None. FINDINGS: HEAD AND NECK: There is no FDG-avid disease or significant lymphadenopathy in the imaged portions of the head and the neck. CHEST: Postoperative changes to the right breast and low right cervical region suggesting a postprocedural hematoma. This shows minimal post contrast metabolic activity which is unremarkable. Air is identified within the soft tissues again most likely on a post procedural bases. No evidence for pathologic metabolic activity within the chest. Hilar and mediastinal regions show no significant robinson change. ABDOMEN/PELVIS: Below the diaphragm, tracer is distributed physiologically in the gastrointestinal and genitourinary tracts. There is no significant lymphadenopathy and no FDG-avid disease. MUSCULOSKELETAL: There is no FDG-avid or destructive bone lesion. IMPRESSION: 1. Postprocedural hematoma and soft tissue air within the right breast and right axilla 2. PET scan is otherwise negative. The above report was generated using voice recognition software. It may contain grammatical, syntax or spelling errors. Electronically signed by: Miles Driver M.D. 08/25/2017 12:04 PM Dictated Date/Time: 08/25/2017 11:54 AM
== END | disposition home or self-care (01) ==
LOC: C.PET 09:01
PROVIDERS: ATTEND Internal Medicine Hematology & Oncology
DX: C50.919 Malignant neoplasm of unspecified site of unspecified female breast (principal)

== ENCOUNTER → 2017-12-18 | Outpatient (CLI) | payer OTHER, BC ==
[~2017-12-18] MED LIST changes: +ANAS1TAB19 PO; +DOCU-94 PO; +METR0.7536 TOP; -NAPR1TAB9 PO; -SCOP1.5D2; +SCOP1DIS17 TD
[2017-12-18 13:39] VITALS: BP 113/74; PULSE 82; TEMP 37.1; O2SAT 95
--- NOTE | 2017-12-19 07:01 | Radiation Oncology Follow-Up ---
Radiation Oncology Follow-Up Date of Visit December 18, 2017. Reason For Visit One-month follow-up in cancer survivorship care plan Radiation Completion Date finished 11-14-2017 Diagnosis (1) Carcinoma of central portion of right breast in female, estrogen receptor positive Status: Acute Onset Date: 07/23/2017 Histology Subtype: Lobular Stage: l (A) Permanent Comment: Abnormal right breast mammogram Status post ultrasound-guided core needle biopsy breast and axilla 07/23/2017 Invasive lobular carcinoma grade 1, lymph node benign Estrogen receptor positive, progesterone receptor positive, HER-2/judy negative Status post lumpectomy and sentinel lymph node biopsy 08/13/2017 Stage pT1c [id number] Oncotype DX score of 9 Status post completion of radiation therapy November 14, 2017. She received 5130 centigrade utilizing hypo-fractionation. Last Edited By: Heather Muñoz on Nov 24, 2017 12:43 History of Present Illness Ms. Rodriguez who presented with an abnormal mammogram on 07/04/2017 which revealed right breast asymmetry and associated calcifications. The patient was brought back on 07/16/2017 for bilateral digital diagnostic mammogram Tomosynthesis and targeted right ultrasound which revealed a suspicious 9 mm mass in the right breast in the 9 o'clock position as well as a 4 mm lymph node in the 9:30 right breast. The patient underwent ultrasound core biopsies of the right breast lesions at 9:00 and 9:30 on 07/23/2017. The biopsy of the lesion at the 9 o'clock position in the right breast revealed invasive lobular carcinoma that was grade 1 and was estrogen receptor positive, progesterone receptor positive and HER-2 negative. The biopsy of the lesion at 9:30 right breast revealed no evidence of metastatic carcinoma. The patient underwent a right breast lumpectomy and sentinel lymph node biopsy on 08/13/[address] Benito which revealed invasive lobular carcinoma that was grade 1 with no LVSI and measured 1.2 cm in the greatest dimension. The margins were negative and the closest margin was 2 mm. 12 lymph nodes were excised and no lymph nodes were positive for metastatic carcinoma. The patient was stages pathologic [id number], stage IA. We are now seeing the patient in consultation discuss role of adjuvant radiation therapy. Of note, the patient was seen by Dr. Madrigal prior to her lumpectomy and underwent a PET/CT scan on 08/25/2017 which revealed only a postprocedural hematoma but no evidence of distant metastatic disease. The patient is tentatively scheduled to go back to Dr. Madrigal shortly for follow-up evaluation to discuss the role of potential chemotherapy and hormonal therapy. Oncotype DX study has been ordered and results are pending. The Oncotype DX returned with a score of 9. She did not require systemic chemotherapy. She returned to our office and had a CT simulation. She completed treatment on November 14, 2017. She received 5130 centigrade utilizing hypo-fractionation. Interim History She has been doing well over the past month. The skin irritation that occurred at the end of treatment has resolved. She notes some dark spots below the nipple and to the right. She is noted no masses. She has very mild tenderness on the lateral aspect of the breast and upper inner arm. She describes this as a soreness and not pain. She therefore did not give her pain level. She has no swelling of her arm. She has been seen in medical oncology and started on an aromatase inhibitor. She denies side effects. Allergies Coded Allergies: Adhesives (Verified Allergy, Unknown, Skin irritation, 08/28/17) Home Medications Scheduled Anastrozole (Arimidex), 1 TAB PO DAILY Aspirin (Aspirin Ec), 81 MG PO QPM Docusate Sodium (Colace), 1 CAP PO DAILY Fish Oil ([place]-3), 1 CAP PO BID Ggavilqzons-Jmmvitpgaex-Zji C- (Glucosamine Chondroitin), 1 TAB PO DAILY Levothyroxine Sodium (Synthroid), 88 MCG PO QAM Loratadine (Claritin), 10 MG PO QAM Magnesium Oxide (mg Supplement (Magnesium Oxide), 1 TAB PO QAM Multivitamin (Multivitamin), 1 TAB PO QAM Saccharomyces Boulardii (Probiotic), 1 TAB PO QAM Scopolamine (Scopolamine), 1 PATCH TD [id number] PRN Simvastatin (Zocor), 10 MG PO QPM Scheduled PRN Metronidazole (Topical) (Metronidazole), 1 APPLN TOP DAILY PRN for DRYNESS Review of Systems Gastrointestinal: Symptoms: WNL GI Comments: occ constipation , no change Oral: Symptoms: No Problems Respiratory: Symptoms: WNL Urinary: Symptoms: WNL Comments: occ nocturia Breast: Right Upper Arm Measurement: 26.5 Right Mid Arm Measurement: 23.5 Right Wrist Measurement: 15.5 Left Upper Arm Measurement: 27.0 Left Mid Arm Measurement: 22.0 Left Wrist Measurement: 15.6 Arm Dominence: Right Patient Cosmetic Evaluation: Good Staff Cosmetic Evalaluation: Good Additional Notes: She completed a distress management report and answered "no" to all questions. Physical Exam Vital Signs Date Time Temp Pulse Resp B/P (MAP) Pulse Ox O2 Delivery O2 Flow Rate FiO2 12/18/17 13:39 37.1 82 16 113/74 95 Fatigue: None General Appearance: no apparent distress Eyes: normal inspection, EOMI ENT: normal ENT inspection, hearing grossly normal Neck: no adenopathy Respiratory/Chest: lungs clear, no respiratory distress, no accessory muscle use Breast: Wrist examination reveals well-healed incisions of the right breast. There are no masses or tenderness and no axillary adenopathy. There is slight edema in the lower outer quadrant area. There are no skin retractions or nipple changes. Using the [place] score of cosmesis she has a good outcome. The left breast showed no masses or tenderness and no axillary adenopathy. Cardiovascular: regular rate, rhythm, no gallop, no murmur Extremities: no pedal edema Neurologic/Psychiatric: no motor/sensory deficits, alert, normal mood/affect Skin: warm/dry Pain Management Patient Reports Pain: No Side: Bilateral Patient Preferred Pain Scale: 0 - 10 Initial Pain Intensity: 0.0 Pain Management Plan She required no pain management. Laboratory Laboratory Results: not applicable Pathology Pathology Results: were reviewed, and pertinent findings noted in HPI Imaging Imaging Studies: were reviewed, and pertinent findings noted in HPI Assessment & Plan Plan: Continue regular follow-up with medical oncology and her primary care physician. She continues on the aromatase inhibitor. We discussed the small amount of edema noted of the breast. She was given instruction on light massage. We discussed her arm circumference. The right arm has decreased in comparison to when she was initially seen at her first consultation. She has no signs of arm edema. We discussed at length lymphedema and lymphedema therapy. We discussed referral for prevention. She declined a evaluation at this time. Today we completed a cancer survivorship care plan. A copy of the document was given to the patient. She was given a survivorship booklet. Mammography was scheduled for the right breast in 2 months and bilateral mammography in 8 months. These will be digital diagnostic mammograms. We asked her to return to our office in 6 months. She may call if she has any questions or concerns in the interim. Total Time In Follow-Up I spent 20 minutes speaking to the patient and performing examination. I spent 20 minutes reviewing information, preparing the survivorship document, and completing this note. Copy To Curtis Benito, DO; Milind Mcgarry M.D.; Baron Madrigal D.O.
== END | disposition home or self-care (01) ==
LOC: C.ONC 13:31
PROVIDERS: ATTEND Physician Assistant Medical
DX: Z08 Encounter for follow-up examination after completed treatment for malignant neoplasm (principal); Z92.3 Personal history of irradiation; Z85.3 Personal history of malignant neoplasm of breast